=== PATIENT | male | born 1995 | race Caucasian/White ===

== ENCOUNTER 2017-01-18 13:24 | Emergency (ER) | payer OTHER ==
[~2017-01-18] VITALS: Ht 165.1 cm; Wt 81.6 kg
[~2017-01-18 13:24] MED LIST: AMLO5TAB2 PO; ASPI-612 PO; CITA20TA9 PO; NORT10CA PO; NORT50CA PO; SIMV10TA3 PO; ZOLP5TAB5 PO
[2017-01-18] MEDS ORDERED: IV NORMAL SALINE 1000ML BAG 1,000 ML IV SCH (13:57)
[2017-01-18] MEDS ORDERED: LEVO137T3 PO (13:57)
[2017-01-18] MEDS ORDERED: LISI-334 PO (13:57)
[2017-01-18] MEDS ORDERED: PANT40TA5 PO (13:57)
[2017-01-18] MEDS ORDERED: ALPR1TAB6 PO (13:57)
[2017-01-18] MEDS ORDERED: CARV3.12 PO (13:57)
[2017-01-18] MEDS ORDERED: HYDR4TAB PO (13:57)
[2017-01-18 14:05] LABS: BASO % 0 % (0-3); EOS % 1 % (0-3); HEMATOCRIT 46.7 % (39.0-53.0); HEMOGLOBIN 15.4 g/dL (13.0-17.5); LYMPH % 9 % (24-48); MEAN CORPUSCULAR HEMOGLOBIN 29 pg (25-35); MEAN CORPUSCULAR HGB CONC 33 g/dL (31-37); MEAN CORPUSCULAR VOLUME 89 fL (79-100); MONO % 8 % (0-9); NEUT % 82 % (31-73); PLATELET COUNT 205 x10^3/uL (140-400); RED BLOOD COUNT 5.22 x10^6/uL (4.30-5.70); RED CELL DISTRIBUTION WIDTH 14.8 % (11.5-14.5); WHITE BLOOD COUNT 11.2 x10^3/uL (4.0-11.0)
[2017-01-18] MEDS: HYDROmorphone 2 MG/ML VIAL IV/SQ PRN ×4 (14:12→19:01)
[2017-01-18 14:19] LABS: CALCIUM 8.9 mg/dL (8.5-10.1); CREATININE 1.6 mg/dL (0.7-1.3); GFR 54.3; POTASSIUM 3.6 mmol/L (3.5-5.1)
[2017-01-18 14:25] LABS: ALBUMIN 3.9 g/dL (3.4-5.0); ALBUMIN/GLOBULIN RATIO 1.2 (1.0-1.7); TOTAL BILIRUBIN 0.6 mg/dL (0.2-1.0); TOTAL PROTEIN 7.2 g/dL (6.4-8.2)
--- NOTE | 2017-01-18 14:27 | PHYS DOC ---
Past Medical History Past Medical History: Cancer, Hypertension, Kidney Stone, Renal Disease, TIA Additional Past Medical Histor: CKD,"Other fx's"but only 2 with surgical repair " Past Surgical History: Other Additional Past Surgical Histo: L BKA(from [place]),L hand&femur fx with repair. Alcohol Use: Occasionally Drug Use: Marijuana Adult General Chief Complaint Chief Complaint: FLANK PAIN HPI HPI Patient is a 21 year old male who presents with complaint of right flank pain. Patient states that his pain started last night but progressively worsened throughout the day today. Patient states she has history of kidney stones and chronic kidney disease. Patient also has had history of osteosarcoma status post left litxw-ejt-meim amputation. Patient has had intermittent complications associated with kidney stones causing recurrent pain in the past. The patient states that the pain is located along his right flank. Patient denies radiation of pain into the groin. Patient states that he took a Dilaudid tablet at home which did not help his symptoms. The patient states that he was at work and due to the pain, he collapsed. Patient did not lose consciousness and did not injure himself as a result of falling. Patient brought to the emergency department by EMS for further treatment. Patient states that he has had no recent complications associated with his kidney stones. Patient was last treated in the emergency department here at [facility] on August of 2015. Patient was given fentanyl prior to arrival by EMS which helped temporarily reduce the patient's pain 4 out of 10, however patient states that his pain level has increased since they gave him the medicine. Patient denies any associated fevers , vomiting, or abdominal pain. Review of Systems Review of Systems Constitutional: Denies fever or chills [] Eyes: Denies change in visual acuity, redness, or eye pain [] HENT: Denies nasal congestion or sore throat [] Respiratory: Denies cough or shortness of breath [] Cardiovascular: Denies chest pain or edema[] GI: Denies abdominal pain, nausea, vomiting, bloody stools or diarrhea [] : Right flank pain, denies dysuria or hematuria[] Musculoskeletal: Denies back pain or joint pain [] Integument: Denies rash or skin lesions [] Neurologic: Denies headache, focal weakness or sensory changes [] Current Medications Current Medications Current Medications Medications (Trade) Dose Ordered Sig/Vega Start Time Stop Time Status Last Admin Dose Admin Hydromorphone HCl (Dilaudid) 1 mg PRN Q15MIN PRN 01/18/17 14:00 01/19/17 13:59 01/18/17 19:01 1 MG Ondansetron HCl (Zofran) 4 mg 1X ONCE 01/18/17 14:30 01/18/17 14:31 DC 01/18/17 14:09 4 MG Sodium Chloride 1,000 ml @ 1,000 mls/hr 1X ONCE 01/18/17 16:30 01/18/17 17:29 DC 01/18/17 16:47 1,000 MLS/HR Allergies Allergies Allergies Coded Allergies Type Severity Reaction Last Updated Verified promethazine Allergy Intermediate 09/05/15 Yes Uncoded Allergies Type Severity Reaction Last Updated Verified blood products Allergy Unknown 01/26/15 Physical Exam Physical Exam Constitutional: Alert, afebrile, appears in moderate to severe discomfort. [] HENT: Normocephalic, atraumatic, bilateral external ears normal, oropharynx moist, no oral exudates, nose normal. [] Eyes: PERRLA, EOMI, conjunctiva normal, no discharge. [] Neck: Normal range of motion, no tenderness, supple, no stridor. [] Cardiovascular:Heart rate regular rhythm, no murmur [] Lungs & Thorax: Bilateral breath sounds clear to auscultation [] Abdomen: Bowel sounds normal, soft, no tenderness, no masses, no pulsatile masses. [] Skin: Warm, dry, no erythema, no rash. [] Back: No midline tenderness, right CVA tenderness present, no flank ecchymosis. [] Extremities: Left lower extremity rggls-[id number] patient, no cyanosis, no clubbing, ROM intact, no edema. [] Neurologic: Alert and oriented X 3, normal motor function, normal sensory function, no focal deficits noted. [] Current Patient Data Vital Signs Vital Signs Date Time Temp Pulse Resp B/P (MAP) Pulse Ox O2 Delivery O2 Flow Rate FiO2 01/18/17 19:01 Room Air 01/18/17 17:23 66 12 104/59 (74) 97 01/18/17 13:25 98.6 98.6 Lab Values Laboratory Tests Test 01/18/17 13:25 01/18/17 16:00 White Blood Count 11.2 x10^3/uL (4.0-11.0) H Red Blood Count 5.22 x10^6/uL (4.30-5.70) Hemoglobin 15.4 g/dL (13.0-17.5) Hematocrit 46.7 % (39.0-53.0) Mean Corpuscular Volume 89 fL (79-100) Mean Corpuscular Hemoglobin 29 pg (25-35) Mean Corpuscular Hemoglobin Concent 33 g/dL (31-37) Red Cell Distribution Width 14.8 % (11.5-14.5) H Platelet Count 205 x10^3/uL (140-400) Neutrophils (%) (Auto) 82 % (31-73) H Lymphocytes (%) (Auto) 9 % (24-48) L Monocytes (%) (Auto) 8 % (0-9) Eosinophils (%) (Auto) 1 % (0-3) Basophils (%) (Auto) 0 % (0-3) Neutrophils # (Auto) 9.1 x10^3uL (1.8-7.7) H Lymphocytes # (Auto) 1.0 x10^3/uL (1.0-4.8) Monocytes # (Auto) 0.9 x10^3/uL (0.0-1.1) Eosinophils # (Auto) 0.1 x10^3/uL (0.0-0.7) Basophils # (Auto) 0.0 x10^3/uL (0.0-0.2) Sodium Level 140 mmol/L (136-145) Potassium Level 3.6 mmol/L (3.5-5.1) Chloride Level 107 mmol/L (98-107) Carbon Dioxide Level 20 mmol/L (21-32) L Anion Gap 13 (6-14) Blood Urea Nitrogen 17 mg/dL (8-26) Creatinine 1.6 mg/dL (0.7-1.3) H Estimated GFR (Cockcroft-Gault) 54.3 BUN/Creatinine Ratio 11 (6-20) Glucose Level 113 mg/dL (70-99) H Calcium Level 8.9 mg/dL (8.5-10.1) Total Bilirubin 0.6 mg/dL (0.2-1.0) Aspartate Amino Transferase (AST) 15 U/L (15-37) Alanine Aminotransferase (ALT) 23 U/L (16-63) Alkaline Phosphatase 92 U/L (46-116) Total Protein 7.2 g/dL (6.4-8.2) Albumin 3.9 g/dL (3.4-5.0) Albumin/Globulin Ratio 1.2 (1.0-1.7) Lipase 94 U/L (73-393) Urine Collection Type Void Urine Color Yellow Urine Clarity Clear Urine pH 6.0 Urine Specific [place] >=1.030 Urine Protein 30 mg/dL (NEG-TRACE) Urine Glucose (UA) 250 mg/dL (NEG) Urine Ketones (Stick) 15 mg/dL (NEG) Urine Blood Moderate (NEG) Urine Nitrite Negative (NEG) Urine Bilirubin Negative (NEG) Urine Urobilinogen Dipstick 0.2 mg/dL (0.2 mg/dL) Urine Leukocyte Esterase Negative (NEG) Urine RBC 3-5 /HPF (0-2) Urine WBC Rare /HPF (0-4) Urine Squamous Epithelial Cells Occ /LPF Urine Bacteria 0 /HPF (0-FEW) Urine Mucus Marked /LPF Laboratory Tests 01/18/17 13:25 Laboratory Tests 01/18/17 13:25 EKG EKG Not performed[] Radiology/Procedures Radiology/Procedures [facility] [address] [place] [address] IMAGING REPORT Signed PATIENT: MODESTO SINGH ACCOUNT: [id number] : 1995 LOCATION: ER AGE: 21 SEX: M EXAM STATUS: REG ER ORD. PHYSICIAN: JANICE CROSS MD REASON: right flank pain, history kidney stones PROCEDURE: RENAL COMPLETE BILATERAL Renal ultrasound, 01/18/2017: History: Right flank pain The right kidney measures 11.8 cm in length while the left kidney measures 11.4 cm. There is a small echogenic focus with posterior acoustic shadowing centrally in the left kidney. The appearance suggests a small calculus. No definite right renal calculus is identified. Portions of the right renal collecting system are more prominent than on the 09/05/2015 study. No hydronephrosis is evident on the left. The partially filled urinary bladder is unremarkable. IMPRESSION: 1. Probable small nonobstructing left intrarenal calculus. 2. Mild prominence of portions of the right renal collecting system, not evident on 09/05/2015. CT scanning is suggested for evaluation of the possibility of an obstructing right ureteral calculus, if clinically indicated. DICTATED and SIGNED BY: KOREY SCHWARTZ MD DATE: 01/18/17 1451 CC: JANICE CROSS MD; KRIS ARNDT ~ [] Impressions: [facility] [address] [place], [place] [id number] IMAGING REPORT Signed PATIENT: MODESTO SINGH ACCOUNT: [id number] : 1995 LOCATION: ER AGE: 21 SEX: M EXAM STATUS: REG ER ORD. PHYSICIAN: JANICE CROSS MD REASON: right flank pain, possible kidney stone PROCEDURE: CT ABDOMEN PELVIS WO CONTRAST CT of the abdomen and pelvis without contrast, 01/18/2017: History: Worsening right flank pain Noncontrast scans were obtained utilizing the renal stone protocol. This is a limited study for evaluation of the possibility of urinary tract calculi. There is a single small nonobstructing intrarenal calculus on the left measure approximately 4 mm. There is mild left renal parenchymal scarring. The left renal collecting system and left ureter are not dilated. The partially filled urinary bladder is unremarkable. There is mild dilatation of the right renal collecting system and proximal right ureter with mild perinephric edema. There is a 7 mm calculus in the proximal right ureter at the L3 level. There is minimal adjacent periureteral edema. The distal right ureter is unremarkable. There is minimal streaky atelectasis or scarring in the lung bases posteriorly. The unopacified liver is unremarkable. No gallbladder abnormality is seen. The pancreas is unremarkable. The spleen is of normal size. No abdominal or pelvic adenopathy is seen. The bowel loops are not dilated. No free air or free fluid is evident in the abdomen or pelvis. An internal fixation device is noted in the proximal left femur. IMPRESSION: 1. 7 mm obstructing calculus in the proximal right ureter. 2. Small nonobstructing left intrarenal calculus. PQRS Compliance Statement: One or more of the following individualized dose reduction techniques were utilized for this examination: 1. Automated exposure control 2. Adjustment of the mA and/or kV according to patient size 3. Use of iterative reconstruction technique DICTATED and SIGNED BY: KOREY SCHWARTZ MD DATE: 01/18/17 6582 CC: JANICE CROSS MD; ARI DYKES DO; KRIS ARNDT ~ Course & Med Decision Making Course & Med Decision Making Pertinent Labs and Imaging studies reviewed. (See chart for details) Patient was given IV fluids, Dilaudid, and Zofran. On reevaluation, patient's pain has improved significantly and is currently 3 out of 10. The patient's ultrasound shows prominence of the collecting ducts of the right kidney suggestive of a possible ureteral stone. I spoke with patient regarding these findings. He would like to proceed with a CT scan at this time characterize the size and location of the stone if it is present in the right ureter. This will be followed up by Dr. Dykes was some care of patient at 1520. I assumed care of this patient as stated. On reevaluation, he is resting more currently, states his pain has "started to increase again", is now a 4 out of 10. Additional analgesia is available, was administered patient with good effect. CT reveals evidence of hydronephrosis with mild periureteral edema, 7 mm obstructing stone at the level of L3 in the right ureter. I did discuss this finding with patient, patient has previously received instrumentation to remove calculi, and as I do not believe this patient will be able to pass this stone without intervention, and as we do not have urology coverage at [facility], he is agreeable for transfer to [facility] where he previously has been treated for his ureteral calculi. I did speak with Ana Maria triage nurse via the [facility] transfer Center, findings as above and clinical course were discussed. Patient has no evidence of infection in his urine, and no systemic findings of infection, as stated creatinine is 1.6 , with a baseline of ~1.5. He received several doses of analgesia after my evaluation, is resting comfortably, patient's mother is present in the emergency department. Patient was accepted for transfer by Dr. Christoph Hanson of urology. Consent for transfer paperwork was obtained and completed by patient , as patient continues to require IV analgesia for comfort, and will require procedures tonight with IV access, it is most appropriate for ambulance transfer , patient is agreeable with this plan. Risks versus benefits discussed, and consent placed on chart. Images were clouded to [facility]. Informed patient that per triage transfer nurse Dayna, plan is for for procedure to be performed tonight for removal of the calculi, with plan for patient to be potentially discharged home with mother after procedure is completed. Patient voices understanding and agreement with this plan. [facility] transport arranged for transfer , patient transferred for transport without issue. Dragon Disclaimer Dragon Disclaimer This electronic medical record was generated, in whole or in part, using a voice recognition dictation system. Departure Impression: Primary Impression: Right flank pain Additional Impressions: Chronic kidney disease, stage II (mild) Hydronephrosis with obstructing calculus Disposition: TRANSFER OTHER Condition: STABLE Referrals: KRIS ARNDT (PCP) Patient Instructions: Flank Pain Departure Departure Impression: Primary Impression: Right flank pain Additional Impressions: Chronic kidney disease, stage II (mild) Hydronephrosis with obstructing calculus Disposition: TRANSFER OTHER Condition: STABLE Referrals: KRIS ARNDT (PCP) Patient Instructions: Flank Pain Problem Qualifiers JANICE CROSS MD Jan 18, 2017 14:27 ARI DYKES DO Jan 18, 2017 19:37
[2017-01-18] MEDS ORDERED: ONDANSETRON PF 4 MG/2 ML VIAL. IV ONE (14:30)
--- NOTE | 2017-01-18 15:09 | RAD ---
Renal ultrasound, 01/18/2017: History: Right flank pain The right kidney measures 11.8 cm in length while the left kidney measures 11.4 cm. There is a small echogenic focus with posterior acoustic shadowing centrally in the left kidney. The appearance suggests a small calculus. No definite right renal calculus is identified. Portions of the right renal collecting system are more prominent than on the 09/05/2015 study. No hydronephrosis is evident on the left. The partially filled urinary bladder is unremarkable. IMPRESSION: 1. Probable small nonobstructing left intrarenal calculus. 2. Mild prominence of portions of the right renal collecting system, not evident on 09/05/2015. CT scanning is suggested for evaluation of the possibility of an obstructing right ureteral calculus, if clinically indicated.
--- NOTE | 2017-01-18 16:08 | RAD ---
CT of the abdomen and pelvis without contrast, 01/18/2017: History: Worsening right flank pain Noncontrast scans were obtained utilizing the renal stone protocol. This is a limited study for evaluation of the possibility of urinary tract calculi. There is a single small nonobstructing intrarenal calculus on the left measure approximately 4 mm. There is mild left renal parenchymal scarring. The left renal collecting system and left ureter are not dilated. The partially filled urinary bladder is unremarkable. There is mild dilatation of the right renal collecting system and proximal right ureter with mild perinephric edema. There is a 7 mm calculus in the proximal right ureter at the L3 level. There is minimal adjacent periureteral edema. The distal right ureter is unremarkable. There is minimal streaky atelectasis or scarring in the lung bases posteriorly. The unopacified liver is unremarkable. No gallbladder abnormality is seen. The pancreas is unremarkable. The spleen is of normal size. No abdominal or pelvic adenopathy is seen. The bowel loops are not dilated. No free air or free fluid is evident in the abdomen or pelvis. An internal fixation device is noted in the proximal left femur. IMPRESSION: 1. 7 mm obstructing calculus in the proximal right ureter. 2. Small nonobstructing left intrarenal calculus. PQRS Compliance Statement: One or more of the following individualized dose reduction techniques were utilized for this examination: 1. Automated exposure control 2. Adjustment of the mA and/or kV according to patient size 3. Use of iterative reconstruction technique
[2017-01-18 16:11] LABS: BILIRUBIN,URINE NEGATIVE (NEG); GLUCOSE,URINE 250 mg/dL (NEG); NITRITE,URINE NEGATIVE (NEG); PROTEIN,URINE 30 mg/dL (NEG-TRACE); UROBILINOGEN,URINE 0.2 mg/dL (0.2 mg/dL)
[2017-01-18 16:17] LABS: BACTERIA,URINE 0 /HPF (0-FEW); SQUAMOUS EPITHELIAL CELL,UR OCC /LPF; WBC,URINE RARE /HPF (0-4)
[2017-01-18] MEDS ORDERED: IV NORMAL SALINE 1000ML BAG 1,000 ML IV ONE (16:30)
[2017-01-18 19:28] VITALS: BP 116/69
== END 2017-01-18 19:21 | disposition short-term general hospital (02) ==
LOC: ER 13:24
DX: N13.2 Hydronephrosis with renal and ureteral calculous obstruction (principal); I12.9 Hypertensive chronic kidney disease with stage 1 through stage 4 chronic kidney disease, or unspecified chronic kidney disease; N18.2 Chronic kidney disease, stage 2 (mild); Z86.73 Personal history of transient ischemic attack (TIA), and cerebral infarction without residual deficits; Z89.512 Acquired absence of left leg below knee; Z88.8 Allergy status to other drugs, medicaments and biological substances
CPT/HCPCS: 36415; 74176; 76770; 80053; 81001; 83690; 85025; 96361; 96374; 96375; 96376; 99285; J1170; J2405; J7030

== ENCOUNTER 2017-08-21 13:26 | Emergency (ER) | payer BC, OTHER ==
[2017-08-21] MEDS: DIPHTH,PERTUSS(ACELL),TET TOX 0.5 ML DISP.SYRIN. VAX IM (14:31)
== END 2017-08-21 15:34 | disposition home or self-care (01) ==
LOC: ER 13:26
DX: S80.01XA Contusion of right knee, initial encounter (principal); S09.90XA Unspecified injury of head, initial encounter; S80.211A Abrasion, right knee, initial encounter; F12.10 Cannabis abuse, uncomplicated; I12.9 Hypertensive chronic kidney disease with stage 1 through stage 4 chronic kidney disease, or unspecified chronic kidney disease; N18.9 Chronic kidney disease, unspecified; Z79.899 Other long term (current) drug therapy; Z88.8 Allergy status to other drugs, medicaments and biological substances; W01.198A Fall on same level from slipping, tripping and stumbling with subsequent striking against other object, initial encounter; Y93.89 Activity, other specified; Y92.89 Other specified places as the place of occurrence of the external cause; Y99.8 Other external cause status
CPT/HCPCS: 70450; 73562; 90471; 90715; 99284